=== PATIENT | female | born 1980 | race Caucasian/White ===

== ENCOUNTER → 2021-03-10 | Outpatient (CLI) | payer OTHER ==
[2021-03-11 07:11] LABS: RHEUMATOID ARTHRITIS FACTOR <10.0 IU/mL (0.0-13.9)
[2021-03-11 13:15] LABS: ANGIOTENSIN-CONVERTING ENZYME <15 U/L (14-82)
[2021-03-11 23:07] LABS: CCP ANTIBODIES IGG/IGA 8 units (0-19)
== END ==
LOC: LAB 11:41
PROVIDERS: Nurse Practitioner Family
DX: Z87.898 Personal history of other specified conditions (principal); D89.9 Disorder involving the immune mechanism, unspecified; M25.50 Pain in unspecified joint; R76.8 Other specified abnormal immunological findings in serum
CPT/HCPCS: 36415; 82164; 82550; 82728; 83520; 86200; 86431